=== PATIENT | male | born 1990 | race African-American/Black ===

== ENCOUNTER 2019-08-03 09:50 | Emergency (ER) | payer OTHER ==
[~2019-08-03] VITALS: Ht 182.9 cm; Wt 101.0 kg
[~2019-08-03 09:50] MED LIST: NICO14T TD; RISP3 PO
[2019-08-03] MEDS ORDERED: SODIUM CHLORIDE 0.9% 1,000 ML IV ONE (10:55)
[2019-08-03] MEDS ORDERED: NICO-703 TD (10:58)
[2019-08-03] MEDS ORDERED: ONDANSETRON HCL 4 MG/2 ML VIAL IVP ONE (11:00)
[2019-08-03 11:01] LABS: BASOPHILS % (AUTO) 0.3 % (0.0-2.0); HEMATOCRIT 46.1 % (41-53); HEMOGLOBIN 15.8 g/dL (13.5-17.5); LYMPHOCYTES # (AUTO) 2.2 K/uL (1.0-4.8); LYMPHOCYTES % (AUTO) 36.8 % (22.0-44.0); MEAN CORPUSCULAR HEMOGLOBIN 31.2 pg (26.0-34.0); MEAN CORPUSCULAR HGB CONC 34.3 G/dL (31.0-37.0); MEAN CORPUSCULAR VOLUME 91 fL (80-100); MONOCYTES # (AUTO) 0.7 K/uL (0.1-1.0); MONOCYTES % (AUTO) 11.8 % (2.0-9.0); NEUTROPHILS # (AUTO) 2.9 K/uL (1.8-7.7); NEUTROPHILS % (AUTO) 50.1 % (40.0-70.0); PLATELET COUNT (AUTO) 221 K/uL (150-450); RED BLOOD CELL COUNT(AUTO) 5.07 MIL/uL (4.50-5.90); RED CELL DISTRIBUTION WIDTH 13.2 % (11.5-14.5)
[2019-08-03 12:13] LABS: ANION GAP 10 mmol/L (8-16); CALCIUM, TOTAL 9.8 mg/dL (8.8-10.5); CARBON DIOXIDE 24 mmol/L (22-29); CHLORIDE 99 mmol/L (98-107); CREATININE 0.88 mg/dL (0.60-1.30); GLOMERULAR FILTR. RATE CALC > 60 mL/min (>60); GLUCOSE,RANDOM 114 mg/dL (70-110); POTASSIUM 4.2 mmol/L (3.5-5.1); SODIUM SERUM 133 mmol/L (136-145)
[2019-08-03 12:28] LABS: ALANINE AMINOTRANSFERASE 101 U/L (12-78); ALBUMIN 4.1 g/dL (3.4-5.0); ALKALINE PHOSPHATASE 61 U/L (46-116); ASPARTATE AMINOTRANSFERASE 120 U/L (15-37); BILIRUBIN,TOTAL 0.5 mg/dL (0.1-1.0); HCG,QUANTITATIVE < 1 mIU/mL (0-6); LIPASE 271 U/L (73-393); TOTAL PROTEIN, SERUM 8.2 g/dL (6.4-8.2); UREA NITROGEN, BLOOD 12 mg/dL (7-18)
[2019-08-03 13:01] LABS: GLUCOSE, URINE (UA) NEGATIVE (NEGATIVE); KETONES,URINE TRACE mg/dL (NEGATIVE); LEUKOCYTE ESTERASE ,URINE NEGATIVE (NEGATIVE); NITRATE,URINE NEGATIVE (NEGATIVE); OCCULT BLOOD,URINE NEGATIVE (NEGATIVE); PH,URINE 5.5 (5.0-8.0)
[2019-08-03 13:10] LABS: BILIRUBIN,URINE PRELIM. POSITIVE (NEGATIVE)
[2019-08-03 13:11] LABS: APPEARANCE,URINE CLEAR (CLEAR); PROTEIN,URINE NEGATIVE (NEGATIVE)
[2019-08-03 13:32] LABS: CREATINE KINASE, TOTAL ONLY 288 U/L (39-308)
[2019-08-03 13:38] VITALS: BP 116/81
== END 2019-08-03 14:40 | disposition home or self-care (01) ==
LOC: EMS 09:51
DX: R11.2 Nausea with vomiting, unspecified (principal); F32.9 Major depressive disorder, single episode, unspecified; F20.9 Schizophrenia, unspecified; F17.210 Nicotine dependence, cigarettes, uncomplicated; F12.90 Cannabis use, unspecified, uncomplicated; Z79.899 Other long term (current) drug therapy
CPT/HCPCS: 36415; 80053; 81003; 82550; 83690; 84484; 84702; 85025; 93005; 96361; 96374; 99284; J2405; J7030

== ENCOUNTER 2019-08-27 20:06 | Emergency (ER) | payer OTHER ==
[~2019-08-27 20:06] MED LIST changes: +NICO-703 TD; -NICO14T TD
== END 2019-08-27 20:20 | disposition left against medical advice (07) ==
LOC: EMS 20:07
DX: R11.10 Vomiting, unspecified (principal); Z53.21 Procedure and treatment not carried out due to patient leaving prior to being seen by health care provider

== ENCOUNTER 2019-10-27 13:35 | Emergency (ER) | payer OTHER ==
[~2019-10-27] VITALS: Ht 167.6 cm; Wt 68.2 kg
[~2019-10-27 13:35] MED LIST changes: -NICO-703 TD
[2019-10-27] MEDS ORDERED: RisperiDONE 1 MG TABLET PO ONE (15:00)
[2019-10-27 15:21] VITALS: BP 146/79
== END 2019-10-27 15:40 | disposition home or self-care (01) ==
LOC: EMS 13:36
DX: F20.0 Paranoid schizophrenia (principal); F32.9 Major depressive disorder, single episode, unspecified; F12.90 Cannabis use, unspecified, uncomplicated; F17.210 Nicotine dependence, cigarettes, uncomplicated
CPT/HCPCS: 99406

== ENCOUNTER 2020-05-11 21:22 | Emergency (ER) | payer OTHER | END 2020-05-11 22:00 | disposition left against medical advice (07) | LOC: EMS 21:24 | DX: Z76.0 Encounter for issue of repeat prescription (principal); Z53.21 Procedure and treatment not carried out due to patient leaving prior to being seen by health care provider ==

== ENCOUNTER 2020-05-31 17:56 | Inpatient (IN) | payer MEDICAID ==
[~2020-05-31] VITALS: Ht 170.2 cm; Wt 66.0 kg
[2020-06-01 05:16] VITALS: BP 138/83
[2020-06-01] MEDS ORDERED: HALOPERIDOL 5 MG TABLET PO PRN (05:30)
[2020-06-01] MEDS ORDERED: INFLUENZA VIRUS VACCINE QVS 2020-21 (6MO+)/PF 60 MCG/0.5 ML SYRINGE IM ONE (06:00)
[2020-06-01 06:19] VITALS: BP 114/78
[2020-06-01 16:00] VITALS: BP 109/63
[2020-06-01] MEDS: DIVALPROEX SODIUM 500 MG DR TABLET PO SCH (20:39)
[2020-06-01] MEDS: RisperiDONE 3 MG TABLET PO SCH (20:39)
[2020-06-01] MEDS ORDERED: GuaiFENesin/D-METHORPHAN [SUGAR-FREE] 200-20MG/10 ML SYRUP UDCUP PO PRN (22:30)
[2020-06-01] MEDS ORDERED: LOPERAMIDE HCL 2 MG CAPSULE PO PRN (22:30)
[2020-06-01] MEDS ORDERED: MAGNESIUM HYDROXIDE SUSPENSION 30 ML UDCUP PO PRN (22:30)
[2020-06-01] MEDS ORDERED: CloNIDine HCL 0.1 MG TABLET PO PRN (22:30)
[2020-06-01] MEDS ORDERED: NICOTINE 14 MG/24 HOUR PATCH TD PRN (22:30)
[2020-06-01] MEDS ORDERED: PETROLATUM,WHITE 28 GM JELLY TP PRN (22:30)
[2020-06-01] MEDS ORDERED: DOCUSATE SODIUM 100 MG CAPSULE PO PRN (22:30)
[2020-06-01] MEDS ORDERED: ACETAMINOPHEN 325 MG TABLET PO PRN (22:30)
[2020-06-01] MEDS ORDERED: IBUPROFEN 400 MG TABLET PO PRN (22:30)
[2020-06-01] MEDS ORDERED: ONDANSETRON HCL 4 MG TABLET PO PRN (22:30)
[2020-06-01] MEDS ORDERED: ALBUTEROL SULFATE HFA 90 MCG/PUFF 8 GM INHALER IH PRN (22:30)
[2020-06-01] MEDS ORDERED: MAG HYDROX/AL HYDROX/SIMETH ES 30 ML SUSPENSION UDCUP PO PRN (22:30)
[2020-06-02 06:17] VITALS: BP 116/68
[2020-06-02 08:15] VITALS: BP 98/62
[2020-06-02 16:00] VITALS: BP 132/90
[2020-06-02] MEDS: DIVALPROEX SODIUM 500 MG DR TABLET PO SCH (20:08)
[2020-06-02] MEDS: RisperiDONE 3 MG TABLET PO SCH (20:08)
[2020-06-02] MEDS: ZOLPIDEM TARTRATE 10 MG TABLET PO PRN (20:35)
[2020-06-03 05:14] VITALS: BP 114/91
[2020-06-03 08:06] VITALS: BP 112/67
[2020-06-03 08:44] LABS: BASOPHILS % (AUTO) 0.5 % (0.0-2.0); EOSINOPHILS % (AUTO) 1.6 % (1.0-6.0); HEMATOCRIT 43.2 % (41-53); HEMOGLOBIN 14.9 g/dL (13.5-17.5); LYMPHOCYTES # (AUTO) 1.7 K/uL (1.0-4.8); LYMPHOCYTES % (AUTO) 29.2 % (22.0-44.0); MEAN CORPUSCULAR HEMOGLOBIN 31.6 pg (26.0-34.0); MEAN CORPUSCULAR HGB CONC 34.5 G/dL (31.0-37.0); MEAN CORPUSCULAR VOLUME 92 fL (80-100); MONOCYTES # (AUTO) 0.4 K/uL (0.1-1.0); MONOCYTES % (AUTO) 7.4 % (2.0-9.0); NEUTROPHILS # (AUTO) 3.6 K/uL (1.8-7.7); NEUTROPHILS % (AUTO) 61.3 % (40.0-70.0); PLATELET COUNT (AUTO) 286 K/uL (150-450); RED CELL DISTRIBUTION WIDTH 13.8 % (11.5-14.5)
[2020-06-03 09:09] LABS: ALANINE AMINOTRANSFERASE 14 U/L (12-78); ALBUMIN 3.9 g/dL (3.4-5.0); ALKALINE PHOSPHATASE 49 U/L (46-116); ANION GAP 13 mmol/L (8-16); ASPARTATE AMINOTRANSFERASE 19 U/L (15-37); BILIRUBIN,TOTAL 0.6 mg/dL (0.1-1.0); CALCIUM, TOTAL 9.8 mg/dL (8.8-10.5); CARBON DIOXIDE 26 mmol/L (22-29); CHLORIDE 98 mmol/L (98-107); CHOL/HDL RATIO 3.1 (4.2-7.3); CHOLESTEROL 181 mg/dL (131-200); FREE T4 (FREE THYROXINE) 1.33 ng/dL (0.76-1.46); GLOMERULAR FILTR. RATE CALC > 60 mL/min (>60); GLUCOSE,RANDOM 105 mg/dL (70-110); HDL CHOLESTEROL 58 mg/dL (40-60); LDL CHOL (CALC.) 112 mg/dL (0-130); POTASSIUM 4.2 mmol/L (3.5-5.1); SODIUM SERUM 137 mmol/L (136-145); THYROID STIMULATING HORMONE 0.75 uIU/mL (0.36-3.74); TRIGLYCERIDES 55 mg/dL (15-150); UREA NITROGEN, BLOOD 10 mg/dL (7-18)
[2020-06-03 16:27] VITALS: BP 101/62
[2020-06-03] MEDS: RisperiDONE 3 MG TABLET PO SCH (21:29)
[2020-06-03] MEDS: DIVALPROEX SODIUM 500 MG DR TABLET PO SCH (21:29)
[2020-06-04 04:27] VITALS: BP 115/63
[2020-06-04 08:14] VITALS: BP 106/60
[2020-06-04 16:07] VITALS: BP 120/69
[2020-06-04] MEDS: RisperiDONE 3 MG TABLET PO SCH (20:04)
[2020-06-04] MEDS: DIVALPROEX SODIUM 500 MG DR TABLET PO SCH (20:04)
[2020-06-05 05:40] VITALS: BP 114/71
[2020-06-05 16:07] VITALS: BP 112/59
[2020-06-05] MEDS: DIVALPROEX SODIUM 500 MG DR TABLET PO SCH (20:25)
[2020-06-05] MEDS: LORazepam 2 MG TABLET PO PRN (20:25)
[2020-06-05] MEDS: RisperiDONE 3 MG TABLET PO SCH (20:25)
[2020-06-06 02:38] VITALS: BP 117/63
[2020-06-06 08:12] LABS: AMPHET/METH SCREEN,URINE NEGATIVE (NEGATIVE); BARBITURATE SCREEN, URINE NEGATIVE (NEGATIVE); BENZODIAZEPINES SCREEN,URINE NEGATIVE (NEGATIVE); CANNABINOID SCREEN,URINE POSITIVE (NEGATIVE); COCAINE SCREEN,URINE NEGATIVE (NEGATIVE); METHADONE SCREEN, URINE NEGATIVE (NEGATIVE); OPIATE SCREEN,URINE NEGATIVE (NEGATIVE)
[2020-06-06 08:21] VITALS: BP 133/80
[2020-06-06 08:33] LABS: APPEARANCE,URINE CLEAR (CLEAR); BILIRUBIN,URINE NEGATIVE (NEGATIVE); GLUCOSE, URINE (UA) NEGATIVE (NEGATIVE); KETONES,URINE TRACE mg/dL (NEGATIVE); LEUKOCYTE ESTERASE ,URINE NEGATIVE (NEGATIVE); NITRATE,URINE NEGATIVE (NEGATIVE); OCCULT BLOOD,URINE NEGATIVE (NEGATIVE); PROTEIN,URINE NEGATIVE (NEGATIVE)
[2020-06-06 08:39] LABS: PHENCYCLIDINE SCREEN,URINE NEGATIVE (NEGATIVE)
[2020-06-06] MEDS: LORazepam 2 MG TABLET PO PRN ×2 (13:14→17:18)
[2020-06-06 16:13] VITALS: BP 131/78
[2020-06-06] MEDS: ZOLPIDEM TARTRATE 10 MG TABLET PO PRN (20:36)
[2020-06-06] MEDS: RisperiDONE 3 MG TABLET PO SCH (20:36)
[2020-06-06] MEDS: DIVALPROEX SODIUM 500 MG DR TABLET PO SCH (20:36)
[2020-06-07 02:00] VITALS: BP 129/68
[2020-06-07 08:06] VITALS: BP 106/75
[2020-06-07] MEDS: LORazepam 2 MG TABLET PO PRN (18:13)
[2020-06-07 18:27] VITALS: BP 122/74
[2020-06-07] MEDS: ZOLPIDEM TARTRATE 10 MG TABLET PO PRN (20:48)
[2020-06-07] MEDS: RisperiDONE 3 MG TABLET PO SCH (20:49)
[2020-06-07] MEDS: DIVALPROEX SODIUM 500 MG DR TABLET PO SCH (20:49)
[2020-06-08 06:12] VITALS: BP 127/74
[2020-06-08 08:18] VITALS: BP 98/46
[2020-06-08 17:26] VITALS: BP 108/67
[2020-06-08] MEDS: RisperiDONE 3 MG TABLET PO SCH (20:03)
[2020-06-08] MEDS: DIVALPROEX SODIUM 500 MG DR TABLET PO SCH (20:03)
[2020-06-09 01:30] VITALS: BP 119/72
[2020-06-09 08:42] VITALS: BP_SYST 111; BP_SYST 129; BP_DIAS 63; BP_DIAS 79
[2020-06-09 16:31] VITALS: BP 115/65
[2020-06-09] MEDS: DIVALPROEX SODIUM 500 MG DR TABLET PO SCH (20:35)
[2020-06-09] MEDS: RisperiDONE 3 MG TABLET PO SCH (20:35)
[2020-06-10 02:45] VITALS: BP 113/69
[2020-06-10 08:04] VITALS: BP 101/58
[2020-06-10] MEDS ORDERED: DIVA-112 PO (12:45)
[2020-06-10] MEDS ORDERED: RISP3TAB35 PO (12:45)
== END 2020-06-10 14:45 | disposition home or self-care (01) | DRG 750 ==
LOC: B3A 06-01 05:35
DX: F20.0 Paranoid schizophrenia (principal); F12.10 Cannabis abuse, uncomplicated; I95.9 Hypotension, unspecified; Z79.899 Other long term (current) drug therapy
CPT/HCPCS: 80307; 83036; 84436; 84439; 84443; 90686

== ENCOUNTER 2020-12-27 00:53 | Emergency (ER) | payer MEDICAID, OTHER ==
[~2020-12-27] VITALS: Ht 170.2 cm; Wt 77.3 kg
[~2020-12-27 00:53] MED LIST changes: +DIVA-112 PO; -RISP3 PO; +RISP3TAB35 PO
[2020-12-27] MEDS ORDERED: QUET25TA PO (01:00)
[2020-12-27] MEDS ORDERED: AMOX TR/POT CLAV 875 MG/125 MG TABLET PO ONE (01:30)
[2020-12-27] MEDS ORDERED: ACETAMINOPHEN 500 MG TABLET PO ONE (01:30)
[2020-12-27 01:48] VITALS: BP 117/60
== END 2020-12-27 01:54 | disposition home or self-care (01) ==
LOC: EMS 00:53
DX: K02.9 Dental caries, unspecified (principal); F32.9 Major depressive disorder, single episode, unspecified; F20.9 Schizophrenia, unspecified; F17.210 Nicotine dependence, cigarettes, uncomplicated; F12.90 Cannabis use, unspecified, uncomplicated
CPT/HCPCS: 99283

== ENCOUNTER 2021-03-26 09:41 | Emergency (ER) | payer OTHER ==
[~2021-03-26 09:41] MED LIST changes: +QUET25TA PO
== END 2021-03-26 10:07 | disposition left against medical advice (07) ==
LOC: EMS 09:45
DX: R11.10 Vomiting, unspecified (principal); Z53.21 Procedure and treatment not carried out due to patient leaving prior to being seen by health care provider

== ENCOUNTER 2021-08-11 09:06 | Emergency (ER) | payer OTHER ==
[~2021-08-11] VITALS: Ht 172.7 cm; Wt 68.0 kg
[2021-08-11 09:28] LABS: EOSINOPHILS % (AUTO) 1.3 % (1.0-6.0); HEMOGLOBIN 15.8 g/dL (13.5-17.5); LYMPHOCYTES # (AUTO) 2.4 K/uL (1.0-4.8); LYMPHOCYTES % (AUTO) 46.3 % (22.0-44.0); MEAN CORPUSCULAR HEMOGLOBIN 30.9 pg (26.0-34.0); MEAN CORPUSCULAR HGB CONC 35.1 G/dL (31.0-37.0); MEAN CORPUSCULAR VOLUME 88 fL (80-100); MONOCYTES # (AUTO) 0.6 K/uL (0.1-1.0); NEUTROPHILS # (AUTO) 2.1 K/uL (1.8-7.7); NEUTROPHILS % (AUTO) 39.4 % (40.0-70.0); PLATELET COUNT (AUTO) 237 K/uL (150-450); RED CELL DISTRIBUTION WIDTH 12.9 % (11.5-14.5)
[2021-08-11] MEDS ORDERED: MAG HYDROX/AL HYDROX/SIMETH 30 ML SUSP UDCUP PO ONE (09:30)
[2021-08-11] MEDS ORDERED: ACETAMINOPHEN 500 MG TABLET PO ONE (09:30)
[2021-08-11] MEDS ORDERED: FAMOTIDINE 10 MG/ML 2 ML VIAL IVP ONE (09:30)
[2021-08-11] MEDS ORDERED: ONDANSETRON HCL 4 MG/2 ML VIAL IVP ONE (09:30)
[2021-08-11] MEDS ORDERED: IOHEXOL 350 MG/ML 100 ML VIAL ONE (09:35)
[2021-08-11] MEDS ORDERED: SODIUM CHLORIDE 0.9% 100 ML ONE (09:35)
[2021-08-11 09:38] LABS: ANION GAP 10 mmol/L (8-16); CALCIUM, TOTAL 9.4 mg/dL (8.8-10.5); CARBON DIOXIDE 26 mmol/L (22-29); CHLORIDE 100 mmol/L (98-107); CREATININE 1.01 mg/dL (0.60-1.30); GLOMERULAR FILTR. RATE CALC > 60 mL/min (>60); GLUCOSE,RANDOM 95 mg/dL (70-110); POTASSIUM 3.8 mmol/L (3.5-5.1); SODIUM SERUM 136 mmol/L (136-145); UREA NITROGEN, BLOOD 9 mg/dL (7-18)
[2021-08-11 09:44] LABS: ALANINE AMINOTRANSFERASE 39 U/L (12-78); ALBUMIN 4.3 g/dL (3.4-5.0); ALKALINE PHOSPHATASE 76 U/L (46-116); ASPARTATE AMINOTRANSFERASE 38 U/L (15-37); BILIRUBIN,TOTAL 0.4 mg/dL (0.1-1.0); LIPASE 167 U/L (73-393); TOTAL PROTEIN, SERUM 8.8 g/dL (6.4-8.2)
[2021-08-11 12:10] LABS: APPEARANCE,URINE CLEAR (CLEAR); BILIRUBIN,URINE NEGATIVE (NEGATIVE); GLUCOSE, URINE (UA) NEGATIVE (NEGATIVE); KETONES,URINE NEGATIVE (NEGATIVE); LEUKOCYTE ESTERASE ,URINE NEGATIVE (NEGATIVE); NITRATE,URINE NEGATIVE (NEGATIVE); OCCULT BLOOD,URINE NEGATIVE (NEGATIVE); PH,URINE 6.5 (5.0-8.0); PROTEIN,URINE TRACE (NEGATIVE)
[2021-08-11] MEDS ORDERED: ONDA-104 PO (12:51)
[2021-08-11] MEDS ORDERED: AMOX TR/POT CLAV 875 MG/125 MG TABLET PO ONE (13:00)
[2021-08-11 13:40] VITALS: BP 128/85
== END 2021-08-11 13:51 | disposition home or self-care (01) ==
LOC: EMS 09:09
DX: K52.9 Noninfective gastroenteritis and colitis, unspecified (principal); Z79.899 Other long term (current) drug therapy
CPT/HCPCS: 36415; 74177; 80053; 81003; 83690; 85025; 96374; 96375; 99285; J2405; J3490; J7050; Q9967

== ENCOUNTER 2023-11-09 11:20 | Inpatient (IN) | payer MEDICAID ==
[~2023-11-09] VITALS: Ht 170.2 cm; Wt 87.5 kg
[~2023-11-09 11:20] MED LIST changes: +ONDA-104 PO
[2023-11-09] MEDS ORDERED: LORazepam 2 MG TABLET PO PRN (13:00)
[2023-11-09] MEDS ORDERED: HALOPERIDOL 5 MG TABLET PO PRN (13:00)
[2023-11-09] MEDS ORDERED: ZOLPIDEM TARTRATE 10 MG TABLET PO PRN (13:00)
[2023-11-09 15:14] VITALS: BP 122/81; PULSE 95; RESP 18; TEMP 98.2; O2SAT 98
[2023-11-09 20:32] VITALS: BP 139/97; PULSE 146; RESP 16; TEMP 98.2; O2SAT 96
[2023-11-10 08:37] LABS: BASOPHILS % (AUTO) 0.6 % (0.0-2.0); EOSINOPHILS % (AUTO) 2.6 % (1.0-6.0); HEMATOCRIT 49.3 % (41-53); HEMOGLOBIN 17.3 g/dL (13.5-17.5); LYMPHOCYTES # (AUTO) 3.5 K/uL (1.0-4.8); LYMPHOCYTES % (AUTO) 42.1 % (22.0-44.0); MEAN CORPUSCULAR HEMOGLOBIN 31.7 pg (26.0-34.0); MEAN CORPUSCULAR HGB CONC 35.1 G/dL (31.0-37.0); MEAN CORPUSCULAR VOLUME 90 fL (80-100); MONOCYTES # (AUTO) 0.8 K/uL (0.1-1.0); MONOCYTES % (AUTO) 9.7 % (2.0-9.0); NEUTROPHILS # (AUTO) 3.8 K/uL (1.8-7.7); PLATELET COUNT (AUTO) 283 K/uL (150-450); RED BLOOD CELL COUNT(AUTO) 5.46 MIL/uL (4.50-5.90); WHITE BLOOD COUNT (AUTO) 8.4 K/uL (4.5-11.0)
[2023-11-10 08:50] LABS: ALCOHOL, BLOOD (SERUM) < 3 mg/dL (0-10)
[2023-11-10 09:09] LABS: ALANINE AMINOTRANSFERASE 30 U/L (12-78); ALBUMIN 4.4 g/dL (3.4-5.0); ALKALINE PHOSPHATASE 56 U/L (46-116); ANION GAP 11 mmol/L (8-16); ASPARTATE AMINOTRANSFERASE 43 U/L (15-37); BILIRUBIN,TOTAL 0.7 mg/dL (0.1-1.0); CALCIUM, TOTAL 9.6 mg/dL (8.8-10.5); CARBON DIOXIDE 27 mmol/L (22-29); CHLORIDE 93 mmol/L (98-107); CHOL/HDL RATIO 3.7 (4.2-7.3); CHOLESTEROL 223 mg/dL (131-200); CREATININE 1.01 mg/dL (0.60-1.30); GLOMERULAR FILTR. RATE CALC > 60 mL/min (>60); GLUCOSE,RANDOM 108 mg/dL (70-110); HDL CHOLESTEROL 61 mg/dL (40-60); LDL CHOL (CALC.) 140 mg/dL (0-130); SODIUM SERUM 131 mmol/L (136-145); T4 (THYROXINE) 12.4 mcg/dL (4.7-13.3); THYROID STIMULATING HORMONE 0.76 uIU/mL (0.36-3.74); TOTAL PROTEIN, SERUM 9.2 g/dL (6.4-8.2); TRIGLYCERIDES 112 mg/dL (15-150); UREA NITROGEN, BLOOD 17 mg/dL (7-18)
[2023-11-10] MEDS: POTASSIUM CHLORIDE 20 MEQ ER TABLET PO ONE (10:13)
[2023-11-10] MEDS ORDERED: LOPERAMIDE HCL 2 MG CAPSULE PO PRN (10:15)
[2023-11-10] MEDS ORDERED: DOCUSATE SODIUM 100 MG CAPSULE PO PRN (10:15)
[2023-11-10] MEDS ORDERED: ALBUTEROL SULFATE HFA 90 MCG/PUFF 8 GM INHALER IH PRN (10:15)
[2023-11-10] MEDS ORDERED: IBUPROFEN 400 MG TABLET PO PRN (10:15)
[2023-11-10] MEDS ORDERED: ONDANSETRON HCL 4 MG TABLET PO PRN (10:15)
[2023-11-10] MEDS ORDERED: ACETAMINOPHEN 325 MG TABLET PO PRN (10:15)
[2023-11-10] MEDS ORDERED: GuaiFENesin/D-METHORPHAN [SUGAR-FREE] 200-20MG/10 ML SYRUP UDCUP PO PRN (10:15)
[2023-11-10] MEDS ORDERED: MAG HYDROX/ALUMINUM HYD/SIMETH ES 30 ML SUSPENSION UDCUP PO PRN (10:15)
[2023-11-10] MEDS ORDERED: NICOTINE 14 MG/24 HOUR PATCH TD PRN (10:15)
[2023-11-10] MEDS ORDERED: CloNIDine HCL 0.1 MG TABLET PO PRN (10:15)
[2023-11-10] MEDS ORDERED: PETROLATUM,WHITE 28 GM JELLY TP PRN (10:15)
[2023-11-10] MEDS ORDERED: MAGNESIUM HYDROXIDE SUSPENSION 30 ML UDCUP PO PRN (10:15)
[2023-11-10 10:24] LABS: FREE T4 (FREE THYROXINE) 1.47 ng/dL (0.76-1.46)
[2023-11-10] MEDS: PARoxetine HCL 20 MG TABLET PO SCH (10:42)
[2023-11-10] MEDS: OLANZapine 5 MG TABLET PO SCH (10:43)
[2023-11-10 15:57] VITALS: BP 103/63; PULSE 85; RESP 18; TEMP 99.3; O2SAT 100
[2023-11-10 20:27] VITALS: BP 103/63; PULSE 85; RESP 18; TEMP 99; O2SAT 100
[2023-11-11 08:10] VITALS: BP 121/75; PULSE 71; RESP 18; TEMP 98; O2SAT 98
[2023-11-11 08:50] LABS: HEMOGLOBIN A1C 5.2 % (3.8-5.6)
[2023-11-11 09:04] LABS: CHOL/HDL RATIO 3.7 (4.2-7.3); POTASSIUM 3.3 mmol/L (3.5-5.1); THYROID STIMULATING HORMONE 0.59 uIU/mL (0.36-3.74)
[2023-11-11 21:50] VITALS: BP 126/79; PULSE 94; RESP 16; TEMP 98.4; O2SAT 95
[2023-11-12 08:00] VITALS: BP 108/58; PULSE 71; RESP 18; TEMP 97.3; O2SAT 100
[2023-11-12] MEDS: POTASSIUM CHLORIDE 10 MEQ ER TABLET PO ONE (14:45)
[2023-11-12 20:11] VITALS: BP 111/84; PULSE 79; RESP 18; TEMP 97.8
[2023-11-13 08:04] VITALS: BP 112/86; PULSE 85; RESP 16; TEMP 97.9; O2SAT 96
[2023-11-13 20:18] VITALS: BP 113/62; PULSE 63; RESP 18; TEMP 97.6; O2SAT 96
[2023-11-14 08:22] VITALS: BP 133/67; PULSE 70; RESP 17; TEMP 98; O2SAT 99
[2023-11-14 20:35] VITALS: BP 129/89; PULSE 62; RESP 18; TEMP 98.2; O2SAT 98
[2023-11-15 08:40] VITALS: BP 108/68; PULSE 62; RESP 17; TEMP 97.9; O2SAT 98
[2023-11-15 09:05] LABS: APPEARANCE,URINE TURBID (CLEAR); BILIRUBIN,URINE NEGATIVE (NEGATIVE); COLOR,URINE ORANGE (YELLOW); GLUCOSE, URINE (UA) NEGATIVE (NEGATIVE); KETONES,URINE NEGATIVE (NEGATIVE); LEUKOCYTE ESTERASE ,URINE NEGATIVE (NEGATIVE); NITRATE,URINE NEGATIVE (NEGATIVE); OCCULT BLOOD,URINE NEGATIVE (NEGATIVE); PROTEIN,URINE 30-70 mg/dL (NEGATIVE); SPECIFIC GRAVITIY, URINE 1.029 (1.003-1.030); UROBILINOGEN,URINE <=1.0 mg/dL (<=1.0)
[2023-11-15 09:14] LABS: ALCOHOL, URINE DRUG SCREEN NEGATIVE (NEGATIVE); AMPHET/METH SCREEN,URINE NEGATIVE (NEGATIVE); BARBITURATE SCREEN, URINE NEGATIVE (NEGATIVE); BENZODIAZEPINES SCREEN,URINE NEGATIVE (NEGATIVE); CANNABINOID SCREEN,URINE POSITIVE (NEGATIVE); COCAINE SCREEN,URINE NEGATIVE (NEGATIVE); METHADONE SCREEN, URINE NEGATIVE (NEGATIVE); OPIATE SCREEN,URINE NEGATIVE (NEGATIVE); PHENCYCLIDINE SCREEN,URINE NEGATIVE (NEGATIVE)
[2023-11-16 08:12] VITALS: BP 111/60; PULSE 70; RESP 17; TEMP 97.6; O2SAT 99
[2023-11-16 20:57] VITALS: BP 132/90; PULSE 62; TEMP 97.5; O2SAT 97
[2023-11-17 08:28] VITALS: BP 120/84; PULSE 67; RESP 18; TEMP 98.2; O2SAT 99
[2023-11-17] MEDS: OLANZapine 5 MG TABLET PO SCH (16:05)
[2023-11-17 20:31] VITALS: BP 144/91; PULSE 82; TEMP 97.8; O2SAT 98
[2023-11-18 08:10] VITALS: BP 115/73; PULSE 60; RESP 18; TEMP 97.7; O2SAT 98
[2023-11-18] MEDS ORDERED: PARO-149 PO (14:24)
[2023-11-18] MEDS ORDERED: OLAN5TAB52 PO ×2 (14:24→17:01)
[2023-11-18] MEDS ORDERED: PARO-37 PO (17:01)
== END 2023-11-18 17:10 | disposition home or self-care (01) | DRG 750 ==
LOC: B3A 12:15
PROVIDERS: ADMIT Psychiatry & Neurology Child & Adolescent Psychiatry; ATTEND Psychiatry & Neurology Child & Adolescent Psychiatry
PROC: GZHZZZZ Group Psychotherapy (ICD-10-PCS; principal; 2023-11-12)
DX: F20.0 Paranoid schizophrenia (principal); E87.1 Hypo-osmolality and hyponatremia; F10.10 Alcohol abuse, uncomplicated; G47.00 Insomnia, unspecified; E87.6 Hypokalemia; F41.9 Anxiety disorder, unspecified; Z79.899 Other long term (current) drug therapy
CPT/HCPCS: 80053; 80061; 80307; 81003; 83036; 84132; 84436; 84439; 84443; 85025; 86592; G0480